=== PATIENT | male | born 1975 | race Caucasian/White ===

== ENCOUNTER 2020-11-16 21:49 | Inpatient (IN) | payer OTHER ==
[~2020-11-16] VITALS: Ht 177.8 cm; Wt 104.5 kg
[2020-11-16] MEDS ORDERED: heparin 10,000 units/1 ML INJ IV PRN (22:05)
[2020-11-16] MEDS ORDERED: heparin 10,000 units/1 ML INJ IV ONE ×2 (22:05→22:10)
[2020-11-16] MEDS ORDERED: heparin 25,000 UNIT/250ml bag 250 ML IV SCH (22:05)
[2020-11-16 22:10] LABS: BASOPHILS # (AUTO) 0.1 X10'3 (0-0.2); BASOPHILS % (AUTO) 1.1 % (0-1); EOSINOPHILS # (AUTO) 0.2 X10'3 (0-0.9); EOSINOPHILS % (AUTO) 2.2 % (0-6); HEMATOCRIT 45.1 % (42.0-52.0); HEMOGLOBIN 15.8 g/dl (14.0-17.9); LYMPHOCYTES # (AUTO) 4.6 X10'3 (1.1-4.8); LYMPHOCYTES % (AUTO) 44.2 % (21-51); MEAN CORPUSCULAR HEMOGLOBIN 30.7 PG (27.0-31.0); MEAN CORPUSCULAR HGB CONC 35.1 g/dL (33.0-36.5); MEAN CORPUSCULAR VOLUME 87.5 FL (78-98); MEAN PLATELET VOLUME 7.9 FL (7.4-10.4); MONOCYTES % (AUTO) 9.4 % (2-12); NEUTROPHILS # (AUTO) 4.5 X10'3 (1.8-7.7); NEUTROPHILS % (AUTO) 43.1 % (42-75); PLATELET COUNT 207 X10'3 (140-440); RED BLOOD COUNT 5.15 X10'6 (4.70-6.10); RED CELL DISTRIBUTION WIDTH 13.1 % (11.5-14.5); WHITE BLOOD COUNT 10.4 X10'3 (4.5-11.0)
[2020-11-16] MEDS ORDERED: aspirin 81mg tab.chew PO ONE (22:10)
[2020-11-16] MEDS ORDERED: nitroGLYCERIN 0.4mg/hour patch TD ONE (22:10)
[2020-11-16] MEDS ORDERED: nitroGLYCERIN 0.4mg SUBLingual tab SL PRN (22:15)
[2020-11-16] MEDS ORDERED: nitroGLYCERIN-Tridil 50MG/D5W 250 ML IV ONE (22:15)
[2020-11-16] MEDS ORDERED: nitroGLYCERIN 0.4mg SUBLingual tab SL ONE (22:16)
[2020-11-16] MEDS: metoprolol tartrate 1mg/ml inj IV SCH ×3 (22:28→22:55)
[2020-11-16 22:31] LABS: PARTIAL THROMBOPLASTIN TIME 24 SECONDS (22-32)
[2020-11-16] MEDS ORDERED: iohexol 350MG/ML 100ml bottle IV ONE (22:31)
[2020-11-16] MEDS ORDERED: iohexol 350 MG/ML 50ML vial IV ONE (22:31)
[2020-11-16] MEDS ORDERED: heparin 1,000unit/ml 10ml vial 10 ML ONE (22:31)
[2020-11-16] MEDS ORDERED: fentaNYL/PF 50MCG/1 ML 2ML syringe ONE (22:31)
[2020-11-16] MEDS ORDERED: midazolam 2 mg/2 ml injection ONE (22:31)
[2020-11-16] MEDS ORDERED: LIDOcaine 1% (10mg/ml)w/preservative injection 20ml MDV ONE (22:32)
[2020-11-16 22:34] LABS: ALANINE AMINOTRANSFERASE 45 U/L (12-78); ALBUMIN 3.8 G/DL (3.4-5.0); ALBUMIN/GLOBULIN RATIO 1.3 (1.1-1.5); ALKALINE PHOSPHATASE 74 IU/L (46-116); ANION GAP 7 (8-16); ASPARTATE AMINO TRANSFERASE 16 U/L (10-37); BILIRUBIN,TOTAL 0.3 MG/DL (0.1-1.0); BLOOD UREA NITROGEN 14 MG/DL (7-18); BUN/CREATININE RATIO 12.8 (5.4-32.0); CALCIUM 8.7 MG/DL (8.5-10.1); CHLORIDE 107 MMOL/L (99-107); CREATININE 1.09 MG/DL (0.60-1.10); GLUCOSE 121 MG/DL (70-104); POTASSIUM 3.7 MMOL/L (3.5-5.1); SODIUM 142 MMOL/L (135-145); TOTAL CARBON DIOXIDE 28.5 MMOL/L (24-32); TOTAL PROTEIN 6.7 G/DL (6.4-8.2); eGFR 73 ML/MIN
[2020-11-16 22:50] LABS: C-REACTIVE PROTEIN 0.21 MG/DL (0.0-0.5)
[2020-11-16] MEDS ORDERED: tirofiban 5mg in NS 100mL 100 ML IV ONE (23:03)
[2020-11-16] MEDS ORDERED: iohexol 350 MG/1 ML 200ml bottle ONE (23:15)
[2020-11-16] MEDS ORDERED: DOBUTamine-DoBUTrex 500mg/D5W 250 ML IV ONE (23:16)
[2020-11-16 23:21] LABS: D-DIMER < 0.19 MG/L FEU (0-0.50)
[2020-11-16] MEDS ORDERED: LIDOcaine 2 gm/250ml D5W 250 ML IV ONE (23:22)
[2020-11-16] MEDS ORDERED: [UNRECOGNIZED DRUG - OTHER] IVF ONE ×2 (23:35)
[2020-11-16] MEDS ORDERED: TPA CATHFLO IVF ONE ×2 (23:35)
[2020-11-16] MEDS ORDERED: FLUSH IVF ONE ×2 (23:35)
[2020-11-16] MEDS ORDERED: alteplase 100MG inj. 100 ML IV ONE (23:40)
[2020-11-17] VITALS (27 sets, daily range): BP systolic 96–123; BP diastolic 43–82
[2020-11-17] MEDS ORDERED: tirofiban 5mg in NS 100mL 100 ML IV ONE (00:01)
[2020-11-17] MEDS ORDERED: LIDOcaine 2% (20 mg/ml) 5ml cardiac syringe ONE (00:50)
[2020-11-17] MEDS ORDERED: atropine 0.1mg/ml 10ml syringe ONE (00:50)
[2020-11-17] MEDS ORDERED: HYDROcodone/acetaminophen 10/325mg tab PO PRN ×2 (01:15)
[2020-11-17] MEDS ORDERED: cyclobenzaprine 10mg tablet PO PRN (01:15)
[2020-11-17] MEDS ORDERED: OXAZEpam 15mg capsule PO PRN (01:15)
[2020-11-17] MEDS ORDERED: magnesium hydroxide 30ml (MOM) UD suspension PO PRN (01:15)
[2020-11-17] MEDS ORDERED: nitroGLYCERIN 0.4mg SUBLingual tab SL PRN (01:15)
[2020-11-17] MEDS ORDERED: proCHLORperazine 10 MG/2 ml inj IV PRN (01:15)
[2020-11-17] MEDS ORDERED: acetaminophen 325mg tablet PO PRN (01:15)
[2020-11-17] MEDS ORDERED: morphine 10mg/ml inj. IV PRN (01:15)
[2020-11-17] MEDS: normal saline 1000ml 1,000 ML IV SCH ×2 (01:48→14:49)
[2020-11-17 04:03] LABS: BASOPHILS % (AUTO) 0.2 % (0-1); EOSINOPHILS % (AUTO) 0.2 % (0-6); HEMATOCRIT 46.2 % (42.0-52.0); HEMOGLOBIN 15.4 g/dl (14.0-17.9); LYMPHOCYTES # (AUTO) 1.3 X10'3 (1.1-4.8); LYMPHOCYTES % (AUTO) 9.2 % (21-51); MEAN CORPUSCULAR HEMOGLOBIN 29.8 PG (27.0-31.0); MEAN CORPUSCULAR HGB CONC 33.3 g/dL (33.0-36.5); MEAN CORPUSCULAR VOLUME 89.5 FL (78-98); MEAN PLATELET VOLUME 8.8 FL (7.4-10.4); MONOCYTES # (AUTO) 1.1 X10'3 (0-0.9); MONOCYTES % (AUTO) 7.3 % (2-12); NEUTROPHILS % (AUTO) 83.1 % (42-75); PLATELET COUNT 224 X10'3 (140-440); RED BLOOD COUNT 5.17 X10'6 (4.70-6.10); RED CELL DISTRIBUTION WIDTH 13.1 % (11.5-14.5); WHITE BLOOD COUNT 14.5 X10'3 (4.5-11.0)
[2020-11-17] MEDS: tirofiban 5mg in NS 100mL 100 ML IV SCH ×2 (04:20→06:28)
[2020-11-17] MEDS: morphine 4 MG/ML inj SYRINge IV PRN ×2 (04:21→08:59)
[2020-11-17 04:34] LABS: ALANINE AMINOTRANSFERASE 54 U/L (12-78); ALBUMIN 3.3 G/DL (3.4-5.0); ALBUMIN/GLOBULIN RATIO 1.3 (1.1-1.5); ALKALINE PHOSPHATASE 63 IU/L (46-116); ANION GAP 11 (8-16); ASPARTATE AMINO TRANSFERASE 131 U/L (10-37); BILIRUBIN,TOTAL 0.5 MG/DL (0.1-1.0); BLOOD UREA NITROGEN 14 MG/DL (7-18); BUN/CREATININE RATIO 13.6 (5.4-32.0); CALCIUM 8.3 MG/DL (8.5-10.1); CHLORIDE 109 MMOL/L (99-107); CHOLESTEROL 247 MG/DL (0-200); CREATININE 1.03 MG/DL (0.60-1.10); GLUCOSE 147 MG/DL (70-104); HDL CHOLESTEROL 31 MG/DL (35-60); LDL CHOLESTEROL 188 MG/DL (50-100); POTASSIUM 4.2 MMOL/L (3.5-5.1); SODIUM 143 MMOL/L (135-145); TOTAL CARBON DIOXIDE 23.2 MMOL/L (24-32); TOTAL PROTEIN 5.9 G/DL (6.4-8.2); TRIGLYCERIDES 149 MG/DL (20-135); eGFR 78 ML/MIN
--- NOTE | 2020-11-17 06:59 | NUR ---
Patient in room CICU 2007. I have received report from Lila MOORE and had the opportunity to ask questions and assume patient care.
[2020-11-17] MEDS: aspirin 81mg tab.chew PO SCH (08:00)
[2020-11-17] MEDS: docusate sod 100mg capsule PO SCH ×2 (08:00→20:00)
[2020-11-17] MEDS ORDERED: CLOPIDOGREL BISULFATE 300MG TAB PO ONE (08:00)
[2020-11-17] MEDS: atorvastatin 20mg tablet PO SCH (08:00)
--- NOTE | 2020-11-17 10:00 | NUR ---
pt had atypical chest pain 3/10; morphine given. chest pain at 1/10; one NTG given. [employer] notified as well as [employer].
[2020-11-17] MEDS ORDERED: hydrocortisone 1% cream 28gm TP PRN (10:55)
[2020-11-17] MEDS: metoprolol tartrate 12.5mg (1/2 tablet) PO SCH ×2 (11:36→20:00)
[2020-11-17 11:38] LABS: HEMOGLOBIN A1C 5.6 % (4.5-6.2)
[2020-11-17] MEDS ORDERED: MIDAZolam 5mg/ml 2ml vial IV ONE (12:00)
--- NOTE | 2020-11-17 12:29 | NUR ---
Versed not given; no physician present.
--- NOTE | 2020-11-17 12:48 | NUR ---
patient tolerated procedure well with minimal pain.
--- NOTE | 2020-11-17 12:48 | NUR ---
right groin site is without bruising or hematoma. right dorsalis pedis pulse present.
--- NOTE | 2020-11-17 18:27 | NUR ---
Patient report given, questions answered & plan of care reviewed with Lamont MOORE.
[2020-11-18] VITALS (15 sets, daily range): BP systolic 84–130; BP diastolic 44–83
[2020-11-18] MEDS: morphine 4 MG/ML inj SYRINge IV PRN (01:20)
[2020-11-18] MEDS: normal saline 1000ml 1,000 ML IV SCH ×2 (03:11→16:31)
[2020-11-18 06:13] LABS: BASOPHILS % (AUTO) 0.3 % (0-1); EOSINOPHILS # (AUTO) 0.1 X10'3 (0-0.9); EOSINOPHILS % (AUTO) 1.4 % (0-6); HEMATOCRIT 37.8 % (42.0-52.0); HEMOGLOBIN 12.7 g/dl (14.0-17.9); LYMPHOCYTES # (AUTO) 3.1 X10'3 (1.1-4.8); LYMPHOCYTES % (AUTO) 32.4 % (21-51); MEAN CORPUSCULAR HEMOGLOBIN 30.3 PG (27.0-31.0); MEAN CORPUSCULAR HGB CONC 33.6 g/dL (33.0-36.5); MEAN CORPUSCULAR VOLUME 90.2 FL (78-98); MEAN PLATELET VOLUME 8.6 FL (7.4-10.4); MONOCYTES # (AUTO) 0.8 X10'3 (0-0.9); MONOCYTES % (AUTO) 8.5 % (2-12); NEUTROPHILS # (AUTO) 5.5 X10'3 (1.8-7.7); NEUTROPHILS % (AUTO) 57.4 % (42-75); PLATELET COUNT 164 X10'3 (140-440); RED BLOOD COUNT 4.19 X10'6 (4.70-6.10); RED CELL DISTRIBUTION WIDTH 13.2 % (11.5-14.5); WHITE BLOOD COUNT 9.6 X10'3 (4.5-11.0)
--- NOTE | 2020-11-18 06:45 | NUR ---
Patient in room CICU 2007. I have received report from Lamont MOORE and had the opportunity to ask questions and assume patient care.
[2020-11-18 06:49] LABS: ALANINE AMINOTRANSFERASE 45 U/L (12-78); ALBUMIN 2.9 G/DL (3.4-5.0); ALBUMIN/GLOBULIN RATIO 1.2 (1.1-1.5); ALKALINE PHOSPHATASE 52 IU/L (46-116); ANION GAP 7 (8-16); ASPARTATE AMINO TRANSFERASE 69 U/L (10-37); BILIRUBIN,TOTAL 0.6 MG/DL (0.1-1.0); BLOOD UREA NITROGEN 9 MG/DL (7-18); BUN/CREATININE RATIO 10.5 (5.4-32.0); CALCIUM 7.9 MG/DL (8.5-10.1); CHLORIDE 108 MMOL/L (99-107); CREATININE 0.86 MG/DL (0.60-1.10); GLUCOSE 141 MG/DL (70-104); POTASSIUM 3.6 MMOL/L (3.5-5.1); SODIUM 140 MMOL/L (135-145); TOTAL CARBON DIOXIDE 25.3 MMOL/L (24-32); TOTAL PROTEIN 5.4 G/DL (6.4-8.2); eGFR > 90 ML/MIN
[2020-11-18] MEDS: metoprolol tartrate 12.5mg (1/2 tablet) PO SCH ×2 (07:57→20:32)
[2020-11-18] MEDS: atorvastatin 20mg tablet PO SCH (07:57)
[2020-11-18] MEDS: clopidogrel 75mg tablet PO SCH (07:58)
[2020-11-18] MEDS: docusate sod 100mg capsule PO SCH ×2 (07:58→20:32)
[2020-11-18] MEDS: aspirin 81mg tab.chew PO SCH (07:58)
[2020-11-18] MEDS ORDERED: ketorolac tromethamine 15mg/ml inj. IV ONE (10:25)
--- NOTE | 2020-11-18 11:22 | NUR ---
Called to give report to tele nurse for transfer, nurse unable to come to phone, stated will call back.
--- NOTE | 2020-11-18 11:39 | NUR ---
Patient report given to tele nurse Maricarmen RN. Patient to transfer to room 7563A.
--- NOTE | 2020-11-18 12:16 | NUR ---
Patient transferred to room 3023B with all belongings. Maricarmen RN aware that patient arrived to room, pretty at bedside also. Dr. Crisostomo is aware of pt transfer to PCU.
[2020-11-18] MEDS: acetaminophen 325mg tablet PO PRN (16:12)
[2020-11-18] MEDS ORDERED: NO HOME MEDS (18:12)
--- NOTE | 2020-11-18 18:40 | NUR ---
Problems reprioritized. Patient report given, questions answered & plan of care reviewed with Maricarmen.
[2020-11-19 02:00] VITALS: BP 136/62
--- NOTE | 2020-11-19 06:14 | NUR ---
Problems reprioritized. Patient report given, questions answered & plan of care reviewed with Maricarmen.
[2020-11-19 06:16] LABS: BASOPHILS % (AUTO) 0.4 % (0-1); EOSINOPHILS # (AUTO) 0.1 X10'3 (0-0.9); EOSINOPHILS % (AUTO) 1.5 % (0-6); HEMATOCRIT 39.2 % (42.0-52.0); HEMOGLOBIN 13.3 g/dl (14.0-17.9); LYMPHOCYTES # (AUTO) 2.6 X10'3 (1.1-4.8); LYMPHOCYTES % (AUTO) 26.2 % (21-51); MEAN CORPUSCULAR HEMOGLOBIN 30.4 PG (27.0-31.0); MEAN CORPUSCULAR HGB CONC 33.8 g/dL (33.0-36.5); MEAN CORPUSCULAR VOLUME 89.9 FL (78-98); MEAN PLATELET VOLUME 8.8 FL (7.4-10.4); MONOCYTES # (AUTO) 0.9 X10'3 (0-0.9); MONOCYTES % (AUTO) 8.9 % (2-12); NEUTROPHILS # (AUTO) 6.3 X10'3 (1.8-7.7); PLATELET COUNT 176 X10'3 (140-440); RED BLOOD COUNT 4.37 X10'6 (4.70-6.10); RED CELL DISTRIBUTION WIDTH 12.9 % (11.5-14.5); WHITE BLOOD COUNT 9.9 X10'3 (4.5-11.0)
[2020-11-19] MEDS: normal saline 1000ml 1,000 ML IV SCH ×2 (06:37→20:00)
--- NOTE | 2020-11-19 06:41 | NUR ---
RECEIVED BEDSIDE REPORT FROM NED MOORE. BOARD UPDATED
[2020-11-19 06:46] LABS: ALANINE AMINOTRANSFERASE 47 U/L (12-78); ALBUMIN 3.4 G/DL (3.4-5.0); ALBUMIN/GLOBULIN RATIO 1.2 (1.1-1.5); ALKALINE PHOSPHATASE 57 IU/L (46-116); ANION GAP 9 (8-16); ASPARTATE AMINO TRANSFERASE 41 U/L (10-37); BLOOD UREA NITROGEN 9 MG/DL (7-18); BUN/CREATININE RATIO 10.2 (5.4-32.0); CALCIUM 8.3 MG/DL (8.5-10.1); CHLORIDE 109 MMOL/L (99-107); CREATININE 0.88 MG/DL (0.60-1.10); GLUCOSE 98 MG/DL (70-104); POTASSIUM 3.8 MMOL/L (3.5-5.1); SODIUM 142 MMOL/L (135-145); TOTAL CARBON DIOXIDE 24.1 MMOL/L (24-32); TOTAL PROTEIN 6.2 G/DL (6.4-8.2); eGFR > 90 ML/MIN
[2020-11-19] MEDS: aspirin 81mg tab.chew PO SCH (07:22)
[2020-11-19] MEDS: metoprolol tartrate 12.5mg (1/2 tablet) PO SCH ×2 (07:23→19:25)
[2020-11-19] MEDS: clopidogrel 75mg tablet PO SCH (07:24)
[2020-11-19] MEDS: acetaminophen 325mg tablet PO PRN (07:24)
[2020-11-19] MEDS: docusate sod 100mg capsule PO SCH ×2 (07:24→19:25)
[2020-11-19] MEDS: atorvastatin 20mg tablet PO SCH (07:25)
--- NOTE | 2020-11-19 07:31 | NUR ---
PAGER ID: [phone] MESSAGE: [id number] BLANE SMITH, PT WANTS FLUIDS DC. PT IS DRINKING WELL. PT ALSO WANTS TO GO HOME TODAY
[2020-11-19 07:40] VITALS: BP 130/68
[2020-11-19 12:12] VITALS: BP 118/67
[2020-11-19 16:45] VITALS: BP 132/73
[2020-11-19 18:00] VITALS: BP 115/72
--- NOTE | 2020-11-19 18:30 | NUR ---
Patient in room PCU 3023. I have received report from TERESA Anderson and had the opportunity to ask questions and assume patient care.
[2020-11-19 22:00] VITALS: BP 118/83
[2020-11-20 02:00] VITALS: BP 113/67
[2020-11-20 05:48] LABS: BASOPHILS % (AUTO) 0.4 % (0-1); EOSINOPHILS # (AUTO) 0.2 X10'3 (0-0.9); EOSINOPHILS % (AUTO) 2.2 % (0-6); HEMATOCRIT 41.5 % (42.0-52.0); HEMOGLOBIN 13.7 g/dl (14.0-17.9); LYMPHOCYTES # (AUTO) 2.6 X10'3 (1.1-4.8); LYMPHOCYTES % (AUTO) 27.3 % (21-51); MEAN CORPUSCULAR HGB CONC 33.1 g/dL (33.0-36.5); MEAN CORPUSCULAR VOLUME 90.7 FL (78-98); MEAN PLATELET VOLUME 8.6 FL (7.4-10.4); MONOCYTES # (AUTO) 0.8 X10'3 (0-0.9); MONOCYTES % (AUTO) 8.8 % (2-12); NEUTROPHILS # (AUTO) 5.7 X10'3 (1.8-7.7); NEUTROPHILS % (AUTO) 61.3 % (42-75); PLATELET COUNT 181 X10'3 (140-440); RED BLOOD COUNT 4.58 X10'6 (4.70-6.10); WHITE BLOOD COUNT 9.4 X10'3 (4.5-11.0)
--- NOTE | 2020-11-20 06:00 | NUR ---
Patient in room PCU 3023. I have received report from TERESA Hardy and had the opportunity to ask questions and assume patient care.
--- NOTE | 2020-11-20 06:28 | NUR ---
Problems reprioritized. Patient report given, questions answered & plan of care reviewed with TERESA Sandoval.
--- NOTE | 2020-11-20 06:47 | NUR ---
Patient in room PCU 3023. I have received report from Hayley MOORE and had the opportunity to ask questions and assume patient care.
[2020-11-20 07:23] VITALS: BP 102/60
[2020-11-20] MEDS: docusate sod 100mg capsule PO SCH (08:36)
[2020-11-20] MEDS: clopidogrel 75mg tablet PO SCH (08:37)
[2020-11-20] MEDS: atorvastatin 20mg tablet PO SCH (08:37)
[2020-11-20] MEDS: aspirin 81mg tab.chew PO SCH (08:37)
[2020-11-20] MEDS: metoprolol tartrate 12.5mg (1/2 tablet) PO SCH (08:38)
[2020-11-20] MEDS: normal saline 1000ml 1,000 ML IV SCH (09:20)
[2020-11-20 11:00] VITALS: BP 128/74
[2020-11-20] MEDS ORDERED: metoprolol tartrate tablet PO (11:27)
[2020-11-20] MEDS ORDERED: CLOP75TA34 PO (11:27)
[2020-11-20] MEDS ORDERED: ATOR20TA66 PO (11:27)
[2020-11-20] MEDS ORDERED: ASPI81TA53 PO (11:27)
[2020-11-20] MEDS ORDERED: NITR0.4T51 SL (11:27)
--- NOTE | 2020-11-20 12:19 | NUR ---
Patient stable for discharge per MD orders. All discharge instructions reviewed with patient and all questions answered. New prescriptions faxed to [facility]'s pharmacy on [address] in [place]. PIV discontinued, cannula intact. Telemetry discontinued, telephone mechanic notified. All belongings collected and sent with patient. Patient picked up by family member in private vehicle, escorted to lobby by staff.
--- NOTE | 2020-11-21 13:24 | NUR ---
CASE MANAGEMENT DISCHARGE FOLLOW UP: Spoke with pt via telephone. Reports that he is feeling pretty good, admits to mild twinges in his chest that resolve quickly/spontaneously; denies outright chest pain, SOB/dyspnea. Verbalizes understanding of s/sx requiring further evaluation/emergent assistance. Verbalizes understanding of new medications, states that he will run out of liptor before other medications due to Rx written for only 15 days, advised to follow up with PCP/rKanthi to get refill, he states no PCP at this time, trying to get one. Provided pt with Dr Crisostomo's phone number, he states that he will call his office. Verbalizes compliance with MD discharge instructions. Pt wants to know about acceptable blood pressure range, advised pt to notify MD if SBP at or over 160 and/or if he is symptomatic, he verbalizes understanding. States no further questions/concerns at this time.
== END 2020-11-20 12:11 | disposition home or self-care (01) | DRG 246 ==
LOC: ER 21:50 → CICU 2S 11-17 00:32 → PCU 3S 11-18 12:03
PROVIDERS: ADMIT Internal Medicine; ATTEND Internal Medicine
PROC: 4A023N7 Measurement of Cardiac Sampling and Pressure, Left Heart, Percutaneous Approach (ICD-10-PCS; principal; 2020-11-17)
PROC: 027036Z Dilation of Coronary Artery, One Artery with Three Drug-eluting Intraluminal Devices, Percutaneous Approach (ICD-10-PCS; 2020-11-17)
PROC: 02703ZZ Dilation of Coronary Artery, One Artery, Percutaneous Approach (ICD-10-PCS; 2020-11-17)
PROC: B2111ZZ Fluoroscopy of Multiple Coronary Arteries using Low Osmolar Contrast (ICD-10-PCS; 2020-11-17)
PROC: B2151ZZ Fluoroscopy of Left Heart using Low Osmolar Contrast (ICD-10-PCS; 2020-11-17)
PROC: 3E07317 Introduction of Other Thrombolytic into Coronary Artery, Percutaneous Approach (ICD-10-PCS; 2020-11-17)
PROC: B41F1ZZ Fluoroscopy of Right Lower Extremity Arteries using Low Osmolar Contrast (ICD-10-PCS; 2020-11-17)
PROC: 5A2204Z Restoration of Cardiac Rhythm, Single (ICD-10-PCS; 2020-11-17)
DX: I21.19 ST elevation (STEMI) myocardial infarction involving other coronary artery of inferior wall (principal); I49.01 Ventricular fibrillation; R57.9 Shock, unspecified; D62 Acute posthemorrhagic anemia; E78.5 Hyperlipidemia, unspecified; F17.200 Nicotine dependence, unspecified, uncomplicated; K21.9 Gastro-esophageal reflux disease without esophagitis; M54.2 Cervicalgia; I49.3 Ventricular premature depolarization; Z79.82 Long term (current) use of aspirin; Z88.2 Allergy status to sulfonamides; Z71.6 Tobacco abuse counseling
CPT/HCPCS: 36415; 71045; 80053; 80061; 83036; 83735; 83880; 84484; 85025; 85379; 85610; 85730; 86140; 87081; 87635; 93005; 99285; A6258; A6449; C1760; C9803; G0378; J0461; J1250; J1644; J1885; J2001; J2250; J2270; J2997; J3010; J3246; J3490; J7030; Q9967

== ENCOUNTER 2021-10-05 03:13 | Emergency (ER) | payer OTHER ==
[~2021-10-05] VITALS: Ht 177.8 cm; Wt 118.2 kg
[~2021-10-05 03:13] MED LIST: ASPI81TA53 PO; ATOR20TA66 PO; CLOP75TA34 PO; NITR0.4T51 SL; metoprolol tartrate tablet PO
[2021-10-05 03:54] LABS: BASOPHILS % (AUTO) 0.8 % (0-1); EOSINOPHILS # (AUTO) 0.1 X10'3 (0-0.9); HEMATOCRIT 44.8 % (42.0-52.0); HEMOGLOBIN 15.2 g/dl (14.0-17.9); LYMPHOCYTES # (AUTO) 1.3 X10'3 (1.1-4.8); LYMPHOCYTES % (AUTO) 23.5 % (21-51); MEAN CORPUSCULAR HEMOGLOBIN 29.5 PG (27.0-31.0); MEAN CORPUSCULAR VOLUME 86.7 FL (78-98); MEAN PLATELET VOLUME 8.5 FL (7.4-10.4); MONOCYTES % (AUTO) 18.5 % (2-12); NEUTROPHILS # (AUTO) 3.1 X10'3 (1.8-7.7); NEUTROPHILS % (AUTO) 56.2 % (42-75); PLATELET COUNT 183 X10'3 (140-440); RED BLOOD COUNT 5.16 X10'6 (4.70-6.10); RED CELL DISTRIBUTION WIDTH 12.9 % (11.5-14.5); WHITE BLOOD COUNT 5.5 X10'3 (4.5-11.0)
[2021-10-05 04:05] LABS: ALANINE AMINOTRANSFERASE 84 U/L (12-78); ALBUMIN 4.1 G/DL (3.4-5.0); ALBUMIN/GLOBULIN RATIO 1.4 (1.1-1.5); ALKALINE PHOSPHATASE 89 IU/L (46-116); ANION GAP 8 (8-16); ASPARTATE AMINO TRANSFERASE 37 U/L (10-37); BILIRUBIN,TOTAL 0.8 MG/DL (0.1-1.0); BLOOD UREA NITROGEN 12 MG/DL (7-18); BUN/CREATININE RATIO 11.1 (5.4-32.0); CALCIUM 9.2 MG/DL (8.5-10.1); CHLORIDE 105 MMOL/L (99-107); CREATININE 1.08 MG/DL (0.60-1.10); GLUCOSE 131 MG/DL (70-104); SODIUM 140 MMOL/L (135-145); TOTAL CARBON DIOXIDE 27.2 MMOL/L (24-32); TOTAL PROTEIN 7.1 G/DL (6.4-8.2); eGFR 74 ML/MIN
[2021-10-05] MEDS ORDERED: aspirin 325mg tablet PO ONE (05:45)
[2021-10-05 06:15] LABS: PLATELET ESTIMATE NORMAL; TOTAL CELLS COUNTED 100
[2021-10-05 06:22] VITALS: BP 136/87
== END 2021-10-05 06:26 | disposition home or self-care (01) ==
LOC: ER 03:13
DX: R07.89 Other chest pain (principal); Z88.1 Allergy status to other antibiotic agents; Z79.82 Long term (current) use of aspirin; Z79.899 Other long term (current) drug therapy
CPT/HCPCS: 36415; 71045; 80053; 83880; 84484; 85007; 85025; 93005; 99285

== ENCOUNTER 2022-02-10 14:09 | Emergency (ER) | payer OTHER ==
[~2022-02-10] VITALS: Ht 177.8 cm; Wt 113.6 kg
[2022-02-10 15:15] LABS: BASOPHILS # (AUTO) 0.1 X10'3 (0-0.2); BASOPHILS % (AUTO) 0.8 % (0-1); EOSINOPHILS # (AUTO) 0.1 X10'3 (0-0.9); EOSINOPHILS % (AUTO) 1.7 % (0-6); HEMATOCRIT 47.2 % (42.0-52.0); HEMOGLOBIN 15.8 g/dl (14.0-17.9); LYMPHOCYTES # (AUTO) 2.4 X10'3 (1.1-4.8); LYMPHOCYTES % (AUTO) 32.6 % (21-51); MEAN CORPUSCULAR HEMOGLOBIN 28.8 PG (27.0-31.0); MEAN CORPUSCULAR HGB CONC 33.4 g/dL (33.0-36.5); MEAN CORPUSCULAR VOLUME 86.1 FL (78-98); MEAN PLATELET VOLUME 8.7 FL (7.4-10.4); MONOCYTES # (AUTO) 0.6 X10'3 (0-0.9); MONOCYTES % (AUTO) 8.4 % (2-12); NEUTROPHILS # (AUTO) 4.2 X10'3 (1.8-7.7); NEUTROPHILS % (AUTO) 56.5 % (42-75); PLATELET COUNT 192 X10'3 (140-440); RED BLOOD COUNT 5.48 X10'6 (4.70-6.10); RED CELL DISTRIBUTION WIDTH 12.9 % (11.5-14.5); WHITE BLOOD COUNT 7.4 X10'3 (4.5-11.0)
[2022-02-10 15:44] LABS: ALANINE AMINOTRANSFERASE 61 U/L (12-78); ALBUMIN 4.2 G/DL (3.4-5.0); ALBUMIN/GLOBULIN RATIO 1.4 (1.1-1.5); ALKALINE PHOSPHATASE 74 IU/L (46-116); ANION GAP 6 (8-16); ASPARTATE AMINO TRANSFERASE 20 U/L (10-37); BLOOD UREA NITROGEN 13 MG/DL (7-18); BUN/CREATININE RATIO 13.4 (5.4-32.0); CALCIUM 8.6 MG/DL (8.5-10.1); CHLORIDE 109 MMOL/L (99-107); CREATININE 0.97 MG/DL (0.60-1.10); GLUCOSE 86 MG/DL (70-104); POTASSIUM 4.3 MMOL/L (3.5-5.1); SODIUM 143 MMOL/L (135-145); TOTAL CARBON DIOXIDE 28.1 MMOL/L (24-32); TOTAL PROTEIN 7.1 G/DL (6.4-8.2); eGFR 84 ML/MIN
[2022-02-10] MEDS ORDERED: normal saline 1000ml 1,000 ML IV ONE (16:10)
[2022-02-10] MEDS ORDERED: ATOR20TA66 PO (17:11)
[2022-02-10] MEDS ORDERED: AMOX-117 PO (17:11)
[2022-02-10] MEDS ORDERED: ASPI81TA53 PO (17:11)
[2022-02-10] MEDS ORDERED: CLOP75TA34 PO (17:11)
[2022-02-10] MEDS ORDERED: LOP25T PO (17:11)
[2022-02-10] MEDS ORDERED: amox tr/potassium clavulanate 875/125mg TAB PO ONE (17:20)
[2022-02-10 17:43] VITALS: BP 152/94
== END 2022-02-10 17:45 | disposition home or self-care (01) ==
LOC: ER 14:10
DX: R42 Dizziness and giddiness (principal); H66.93 Otitis media, unspecified, bilateral; Z76.0 Encounter for issue of repeat prescription; Z88.2 Allergy status to sulfonamides; Z79.2 Long term (current) use of antibiotics; Z79.82 Long term (current) use of aspirin; Z79.899 Other long term (current) drug therapy
CPT/HCPCS: 36415; 71045; 80053; 83880; 84484; 85025; 93005; 96360; 99285; J7030

== ENCOUNTER 2022-05-30 20:46 | Emergency (ER) | payer OTHER ==
[~2022-05-30] VITALS: Ht 177.8 cm; Wt 117.8 kg
[~2022-05-30 20:46] MED LIST changes: +LOP25T PO
[2022-05-30 22:08] LABS: BASOPHILS % (AUTO) 0.7 % (0-1); EOSINOPHILS # (AUTO) 0.1 X10'3 (0-0.9); EOSINOPHILS % (AUTO) 1.8 % (0-6); HEMATOCRIT 46.1 % (42.0-52.0); HEMOGLOBIN 15.8 g/dl (14.0-17.9); LYMPHOCYTES # (AUTO) 2.8 X10'3 (1.1-4.8); LYMPHOCYTES % (AUTO) 38.4 % (21-51); MEAN CORPUSCULAR HEMOGLOBIN 29.7 PG (27.0-31.0); MEAN CORPUSCULAR HGB CONC 34.2 g/dL (33.0-36.5); MEAN PLATELET VOLUME 8.1 FL (7.4-10.4); MONOCYTES # (AUTO) 0.7 X10'3 (0-0.9); NEUTROPHILS # (AUTO) 3.7 X10'3 (1.8-7.7); NEUTROPHILS % (AUTO) 50.1 % (42-75); PLATELET COUNT 209 X10'3 (140-440); RED CELL DISTRIBUTION WIDTH 12.9 % (11.5-14.5); WHITE BLOOD COUNT 7.4 X10'3 (4.5-11.0)
[2022-05-30 22:22] LABS: ALANINE AMINOTRANSFERASE 66 U/L (12-78); ALBUMIN 4.3 G/DL (3.4-5.0); ALBUMIN/GLOBULIN RATIO 1.5 (1.1-1.5); ALKALINE PHOSPHATASE 79 IU/L (46-116); ANION GAP 10 (8-16); ASPARTATE AMINO TRANSFERASE 26 U/L (10-37); BILIRUBIN,TOTAL 1.2 MG/DL (0.1-1.0); BLOOD UREA NITROGEN 12 MG/DL (7-18); BUN/CREATININE RATIO 12.2 (5.4-32.0); CALCIUM 8.8 MG/DL (8.5-10.1); CHLORIDE 105 MMOL/L (99-107); CREATININE 0.98 MG/DL (0.60-1.10); GLUCOSE 123 MG/DL (70-104); POTASSIUM 3.6 MMOL/L (3.5-5.1); SODIUM 141 MMOL/L (135-145); TOTAL CARBON DIOXIDE 26.5 MMOL/L (24-32); TOTAL PROTEIN 7.2 G/DL (6.4-8.2); eGFR 83 ML/MIN
[2022-05-30] MEDS ORDERED: potassium Cl 20 mEq SR tablet PO ONE (23:25)
[2022-05-30] MEDS ORDERED: magnesium oxide 400mg tablet PO ONE (23:25)
[2022-05-30 23:45] VITALS: BP 123/76
[2022-05-30 23:55] LABS: MAGNESIUM 2.1 MG/DL (1.5-2.4)
== END 2022-05-31 00:05 | disposition home or self-care (01) ==
LOC: ER 20:47
DX: R00.2 Palpitations (principal); I11.9 Hypertensive heart disease without heart failure; Z88.2 Allergy status to sulfonamides; Z79.82 Long term (current) use of aspirin; Z79.899 Other long term (current) drug therapy
CPT/HCPCS: 36415; 71045; 80053; 83735; 83880; 84443; 84484; 85025; 93005; 99285